=== PATIENT | female | born 1980 | race Caucasian/White ===

== ENCOUNTER 2019-06-12 13:52 | Observation (INO) ==
[2019-06-12] MEDS ORDERED: Ringers Solution, Lactated 1,000 ML ONE (13:59)
[2019-06-12] MEDS ORDERED: Ringers Solution, Lactated 1,000 ML IVC ONE (14:08)
[2019-06-12] MEDS ORDERED: Betamethasone Acet/SodPhos 30 MG/5 ML VIAL IM SCH (14:15)
== END 2019-06-12 14:45 | disposition other institution (70) ==
LOC: 1NENULAB
PROVIDERS: ADMIT Obstetrics & Gynecology; ATTEND Obstetrics & Gynecology

== ENCOUNTER → 2019-09-24 17:50 | Observation (INO) | END | disposition home or self-care (01) | LOC: 1NENULAB | PROVIDERS: ADMIT Obstetrics & Gynecology; ATTEND Obstetrics & Gynecology ==

== ENCOUNTER 2019-09-27 18:03 | Inpatient (IN) ==
[~2019-09-27 18:03] MED LIST: *HR* FentaNYL (PF) 100 MCG/2 ML VIAL IVP PRN; Azithromycin 500 MG in 0.9 % Sodium Chloride 250 ML IVPB PRN; Famotidine 20 MG/2 ML VIAL IVP PRN; Lidocaine 1% 20 ML MDV INFILT PRN; Metoclopramide 10 MG/2 ML VIAL IVP PRN; Naloxone 0.4 MG/ML INJ IVP PRN; Ondansetron 4 MG/2 ML VIAL IVP PRN; Oxytocin 20 units/ LR 1000 mL 20 UNIT/1,000 ML BAG IVC SCH; Penicillin G Potassium 5,000,000 UNIT in 0.9 % Sodium Chloride Mini Bag 100 ML IVPB ONE
[2019-09-27] MEDS: Ringers Solution, Lactated 1,000 ML IVC SCH ×3 (18:48→22:13)
[2019-09-27 18:49] LABS: Hematocrit 35.7 % (35.3-44.9); Hemoglobin 11.6 g/dL (11.5-15.4); Mean Corpuscular HGB Conc 32.5 g/dL (31.6-35.5); Mean Corpuscular Volume 92.2 fL (83.0-100.0); Mean Platelet Volume 9.5 fL (9.4-12.4); Nucleated Red Blood Cells 0.3 /100 WBC (0); Platelet Count 178 K/mcL (140-400); Red Blood Count 3.87 M/mcL (3.82-4.97); Red Cell Distribution Width 14.6 % (11.5-14.5); White Blood Count 14.5 K/mcL (4.3-11.1)
[2019-09-27 19:12] LABS: Lymphocytes # 2.6 K/mcL (0.6-4.6); Monocytes # 1.2 K/mcL (0.0-1.3); Neutrophils # 9.9 K/mcL (1.6-8.9); Platelet Estimate Normal (Normal); Toxic Granulation Present (Not Present)
[2019-09-27 19:30] LABS: Amphetamine Screen,Urine Negative ng/mL (Cutoff=1000); Barbiturate Screen,Urine Negative ng/mL (Cutoff=200); Benzodiazepines Screen,Urine Negative ng/mL (Cutoff=200); Cannabinoid Screen,Urine Negative ng/mL (Cutoff = 50); Cocaine Screen,Urine Negative ng/mL (Cutoff= 300); Opiate Screen,Urine Negative ng/mL (Cutoff=300); Phencyclidine Screen,Urine Negative ng/mL (Cutoff=25)
[2019-09-27] MEDS ORDERED: Bupivacaine-MPF 0.25% 10 ML VIAL EP ONE (20:09)
[2019-09-27] MEDS ORDERED: EPHEDrine 50 MG/ML VIAL IVP PRN (20:09)
[2019-09-27] MEDS ORDERED: *HR* FentaNYL (PF) 100 MCG/2 ML VIAL EP ONE (20:09)
[2019-09-27] MEDS ORDERED: *HR* FentaNYL (PF) 100 MCG/2 ML VIAL ONE (20:13)
[2019-09-27] MEDS ORDERED: Bupivacaine-MPF 0.25% 10 ML VIAL ONE (20:13)
[2019-09-27] MEDS ORDERED: Epidural Premix (fent/bupiv) 110 ML EP SCH (20:15)
[2019-09-27] MEDS ORDERED: Oxytocin 20 units/ LR 1000 mL 20 UNIT/1,000 ML BAG IVC SCH (22:00)
[2019-09-27] MEDS: Penicillin G Potassium 2,500,000 UNIT in 0.9 % Sodium Chloride 100 ML IVPB SCH (23:05)
[2019-09-28] MEDS: Penicillin G Potassium 2,500,000 UNIT in 0.9 % Sodium Chloride 100 ML IVPB SCH (04:31)
[2019-09-28] MEDS ORDERED: Benzocaine/Menthol 56 GM AEROSOL SPRAY TP PRN (08:54)
[2019-09-28] MEDS ORDERED: Measles/Mumps/Rubella Vacc 0.5 ML VIAL SQ PRN (08:54)
[2019-09-28] MEDS ORDERED: Rho Immune Globulin 1,500 UNIT SYRINGE IM PRN (08:54)
[2019-09-28] MEDS ORDERED: Lanolin 7 G OINT...G. TP PRN (08:54)
[2019-09-28] MEDS: Ibuprofen 600 MG TABLET PO PRN ×2 (09:07→16:19)
[2019-09-28] MEDS: Prenatal Vit/FA 1 EACH TABLET PO SCH (09:07)
[2019-09-28] MEDS: Acetaminophen 325 MG TABLET PO PRN ×2 (12:26→21:02)
[2019-09-29] MEDS: Ibuprofen 600 MG TABLET PO PRN ×2 (00:08→06:59)
[2019-09-29] MEDS: Oxytocin 20 units/ LR 1000 mL 20 UNIT/1,000 ML BAG IVC SCH ×2 (00:09→00:10)
[2019-09-29] MEDS: Penicillin G Potassium 2,500,000 UNIT in 0.9 % Sodium Chloride 100 ML IVPB SCH (00:10)
[2019-09-29 05:10] VITALS: BP 115/73
[2019-09-29 09:18] LABS: Basophils # 0.1 K/mcL (0.0-0.2); Basophils % 0.9 %; Eosinophils # 0.2 K/mcL (0.0-0.6); Eosinophils % 1.1 %; Immature Granulocytes % 7.9 % (0-4); Lymphocytes # 2.2 K/mcL (0.6-4.6); Lymphocytes % 14.8 %; Mean Corpuscular HGB Conc 31.7 g/dL (31.6-35.5); Mean Corpuscular Hemoglobin 30.4 pg (28.0-33.3); Mean Corpuscular Volume 95.7 fL (83.0-100.0); Mean Platelet Volume 9.6 fL (9.4-12.4); Monocytes # 0.8 K/mcL (0.0-1.3); Monocytes % 5.1 %; Neutrophils # 10.5 K/mcL (1.6-8.9); Platelet Count 187 K/mcL (140-400); Red Blood Count 3.03 M/mcL (3.82-4.97); Red Cell Distribution Width 14.8 % (11.5-14.5); Segmented Neutrophils % 70.2 %
[2019-09-29 09:33] LABS: Hemoglobin 9.2 g/dL (11.5-15.4)
[2019-09-29 10:12] LABS: Platelet Estimate Slight Decrease (Normal); Toxic Granulation Present (Not Present)
[2019-09-29] MEDS: Prenatal Vit/FA 1 EACH TABLET PO SCH (11:32)
[2019-09-29] MEDS: Acetaminophen 325 MG TABLET PO PRN (12:33)
== END 2019-09-29 15:53 | disposition home or self-care (01) ==
LOC: 1NENULAB → 1NENUOBS 09-28 08:32
PROVIDERS: ADMIT Obstetrics & Gynecology; ATTEND Obstetrics & Gynecology